=== PATIENT | male | born 1950 | race Caucasian/White ===

== ENCOUNTER → 2023-02-25 | Outpatient (CLI) | payer MEDICARE | END | disposition home or self-care (01) | LOC: LABWHC1 11:31 | PROVIDERS: ATTEND Orthopaedic Surgery Orthopaedic Surgery of the Spine | DX: Z53.9 Procedure and treatment not carried out, unspecified reason (principal) ==

== ENCOUNTER → 2023-03-08 | Outpatient (CLI) | payer MEDICARE ==
[2023-03-08 16:14] LABS: Partial Thromboplastin Time 23.2 sec (22.0-30.0); Prothrombin Time 10.5 sec (10.0-12.5)
[2023-03-09 02:01] LABS: Basophils # (A) 0.09 X 10*3/uL (0.00-0.10); Eosinophils # (A) 0.24 X 10*3/uL (0.04-0.35); Eosinophils % (A) 2.7 %; Lymphocytes # (A) 1.92 X 10*3/uL (0.90-5.00); Lymphocytes % (A) 21.9 %; MCH 28.9 pg (27.0-32.0); MCHC 32.6 d/dL (32.0-37.0); MCV 88.6 FL (80.0-97.0); Mean Platelet Volume 11.7 FL (9.5-12.2); Monocytes # (A) 0.52 X 10*3/uL (0.20-1.00); Monocytes % (A) 5.9 %; NRBC Per 100 WBC 0 X 10*3/uL (0.00-0.01); Neutrophils # (A) 5.96 X 10*3/uL (1.80-7.70); Neutrophils % (A) 68.3 %; Platelet Count 240 X 10*3/uL (140-440); RBC 5.19 X 10*6/uL (4.40-5.60); RDW 12.7 % (11.5-14.5); WBC 8.75 X 10*3/uL (4.50-10.00)
[2023-03-09 02:17] LABS: Blood Urea Nitrogen 21.3 mg/dL (9.0-27.0); Calcium 10.7 mg/dL (8.7-10.3); Carbon Dioxide 28.5 mmol/L (21.6-31.8); Chloride 104 mmol/L (96-109); Glucose 85 mg/dL (70-110); Potassium 4.3 mmol/L (3.5-5.5); Sodium 145 mmol/L (135-145)
[2023-03-09 02:21] LABS: Appearance,Urine Turbid (Clear); Bilirubin,Urine Negative (Negative); Blood,Urine Negative (Negative); Color,Urine Yellow (Yellow); Ketones,Urine Negative (Negative); Nitrite,Urine Negative (Negative); Specific Gravity,Urine 1.026 (1.001-1.030)
[2023-03-09 02:31] LABS: Bacteria,Urine None Seen (None Seen)
== END | disposition home or self-care (01) ==
LOC: LABPAT 14:32
PROVIDERS: ATTEND Orthopaedic Surgery Orthopaedic Surgery of the Spine
DX: Z01.812 Encounter for preprocedural laboratory examination (principal); M48.00 Spinal stenosis, site unspecified
CPT/HCPCS: 80048; 81001; 85025; 85610; 85730; 86850; 86900; 86901; 87070

== ENCOUNTER 2023-03-20 06:47 | Observation (INO) | payer MEDICARE ==
[2023-03-14 13:12] VITALS: BMI 29.4
[~2023-03-20 06:47] MED LIST: DEXAMETHASONE SOD PHOSPHATE 4 MG/ML 1 ML VIAL IV ONE; ONDANSETRON 4 MG/2 ML VIAL IVP ONE; ceFAZolin 1,000 MG in SODIUM CHLORIDE 0.9% IRRIGATIO 1,000 ML IRRIGATION PRN
[2023-03-20] MEDS ORDERED: HYDROmorphone 0.5 MG/0.5 ML SYRINGE IVP PRN ×2 (07:00→13:28)
[2023-03-20] MEDS: LACTATED RINGERS 1,000 ML IV SCH (07:40)
[2023-03-20] MEDS ORDERED: LIDOCAINE 1% (10MG/ML) FOR IV START INTRADERMA ONE (07:40)
[2023-03-20 08:01] LABS: Glucose,Whole Blood 133 mg/dL (70-110)
[2023-03-20] MEDS ORDERED: PROPOFOL 10 MG/ML 20 ML VIAL IV ONE (08:20)
[2023-03-20] MEDS ORDERED: GLYCOPYRROLATE 0.2 MG/ML 2 ML VIAL ONE (08:20)
[2023-03-20] MEDS ORDERED: WATER FOR INJECTION, STERILE 10 ML VIAL IV ONE (08:20)
[2023-03-20] MEDS ORDERED: SUCCINYLCHOLINE CHLORIDE 200 MG/10 ML VIAL IV ONE (08:20)
[2023-03-20] MEDS ORDERED: fentaNYL (PF) 50 MCG/ML 2 ML AMP ONE (08:20)
[2023-03-20] MEDS ORDERED: VASOPRESSIN 20 UNIT/ML 1 ML VIAL ONE (08:20)
[2023-03-20] MEDS ORDERED: ROCURONIUM 10 MG/ML (5 ML VIAL) IV ONE (08:20)
[2023-03-20] MEDS ORDERED: MIDAZOLAM 2 MG/2 ML VIAL ONE (08:20)
[2023-03-20] MEDS ORDERED: NEOSTIGMINE 1 MG/ML 10 ML VIAL ONE (08:20)
[2023-03-20] MEDS ORDERED: ePHEDrine 50 MG/ML 1 ML VIAL ONE (08:20)
[2023-03-20] MEDS ORDERED: LIDOCAINE 1% INJ 10MG/ML (20 ML MDV) ONE (08:20)
[2023-03-20] MEDS ORDERED: ALBUMIN HUMAN 5% (25gm) 500 ML VIAL IVPB ONE (08:20)
[2023-03-20] MEDS ORDERED: PHENYLEPHRINE 10 MG/ML VIAL ONE (08:20)
[2023-03-20] MEDS ORDERED: GELATIN SPONGE,ABSORB (LARGE) 1 EACH SPONGE TOPICAL ONE (08:25)
[2023-03-20] MEDS ORDERED: LIDOCAINE 0.5%-EPI 1:200,000 50 ML VIAL SQ ONE (08:25)
[2023-03-20] MEDS ORDERED: THROMBIN (BOVINE) 5,000 UNIT VIAL TOPICAL ONE (08:25)
[2023-03-20] MEDS ORDERED: LACTATED RINGERS 1,000 ML IV ONE ×3 (09:49→13:11)
[2023-03-20] MEDS ORDERED: HYDROmorphone 1 MG/ML 1 ML SYRINGE IVP PRN (13:28)
[2023-03-20] MEDS ORDERED: BENZOCAINE/MENTHOL LOZENG 1 EACH LOZENGE MUCOUS MEM PRN (13:28)
[2023-03-20] MEDS ORDERED: SENNOSIDES-DOCUSATE SODIUM 1 EACH TAB PO PRN (13:29)
[2023-03-20] MEDS ORDERED: ONDANSETRON 4 MG/2 ML VIAL IVP PRN (13:29)
[2023-03-20] MEDS ORDERED: MAGNESIUM HYDROXIDE 2,400 MG/30 ML CUP PO PRN (13:29)
--- NOTE | 2023-03-20 13:38 | P.OP ---
Date of Procedure: 03/20/23 Preoperative Diagnosis: Spinal stenosis L3 4 L4 5 L5-S1, disc protrusion L3 4 L4 5 L5-S1, facet arthrosis L3 to S1, lower extremity radiculopathy, lower extremity weakness, neurogenic claudication, degenerative disc disease, low back pain Postoperative Diagnosis: Same Anesthesia: GETA Pathology: none sent Condition: stable Disposition: PACU Description of Procedure: DESCRIPTION OF PROCEDURE(S): BRIEF OPERATIVE NOTE Preoperative Diagnosis: Spinal stenosis L3 4 L4 5 L5-S1, disc protrusion L3 4 L4 5 L5-S1, facet arthrosis L3 to S1, lower extremity radiculopathy, lower extremity weakness, neurogenic claudication, degenerative disc disease, low back pain Postoperative Diagnosis: Same same Procedure: Laminectomy and decompression L3 4 L4 5 L5-S1 with wide bilateral foraminotomy beyond that for preparation for fusion Computer CT navigation aided Minimally invasive Posterior lateral decompression and facet fusion L3 4 L4 5 L5-S1 Minimally invasive Transforaminal lumbar interbody fusion for a 360 fusion L3 4 L4 5 L5-S1 Discectomy for decompression L3 4 L4 5 L5-S1 Placement of interbody graft L3 4 L4 5 L5-S1 Use of computer navigation for fusion L3 L4 L5 and S1 Local autogenous bone grafting Aspiration of bone marrow from the vertebral body pedicle from L3 on the right Use of bone graft extenders Surgeon: Dr. Majano Power Hammer Operator: Vitor WILSON who is present throughout the entire the case nicole kennedy during positioning, dissection, exposure, visualization, and all crucial elements of the case as well as closure. Anesthesia: General anesthesia Estimated blood loss: Approximately 450 mL Complications: None apparent Components implanted: K2M minimally invasive [place] pedicle screw system with 8 screws measuring 6.5 mm in diameter to rods 3 Farber interbody cage with 10 mL of osteo amp bio4 bone graft substitute and 30 mL of the BX bone fibers to supplement the local autogenous bone graft and bone marrow aspirate Disposition: To recovery room in good stable condition. OPERATIVE INDICATIONS The patient has had severe issues at their lower extremity in her lower back over the past several years with significant worsening over the past several months. Over the past few months the patient had pain at their back and their lower extremities. The patient has long-term history of issues with his back and has been worsening significantly for him or is becoming more and more limi ting on his activity and any daily mobilization and movement. He is not had any relief despite aggressive conservative care. His symptoms correlate well with his findings of severe lumbar stenosis and degenerative spondylosis of his lumbar spine with lower extremity issues. The patient is having severe radicular symptoms at their lower extremity with weakness. The patient is having significant pain in their back. They are unable to obtain any comfort. We did aggressive conservative treatment with medications therapy and interventional pain management however thery were not having any relief. The patient also showed evidence of a listhesis with some dynamic instability. The patient has been through conservative treatment. We discussed various treatment options including surgery, and the patient wishes to proceed with surgery We discussed the risk, patient's alternatives and benefits of surgery including but not limited to, risk of bleeding risk of infection, risk of need for further surgery, risk of decreased, loss of motion, muscle function, malunion nonunion, hardware failure, nerve damage, paralysis, heart attack, blindness and . They understood issues with the current pandemic and the possibility of exposure. OPERATIVE SUMMARY After discussing all the risks, patient alternatives and benefits at length, the patient elected to proceed with surgical intervention, signed informed consent, and presented for their procedure. The patient was seen and examined in the preoperative holding area and the surgical site was marked. The patient was given antibiotics and brought to the operating room. The patient was sedated and intubated by anesthesia in standard fashion. The patient was positioned on to the operating room table in a prone position on the appropriate frame which was well-padded and well molded. We were careful to pad any bony prominences and pressure points. We were careful to maintain the patient's cervical spine and good neutral alignment and position throughout. The patient was prepped and draped in a normal standard fashion. An appropriate timeout and keystone protocol performed. We were able to proceed with the surgery. The local wound area was infiltrated with local anesthetic. Over the right iliac crest I was able to make small stab incisions and establish a guidepin screw fixation to the iliac crest 2. I was able place the computer referencing device over the guidepins to establish an appropriate reference point for the Ziem CT navigation. We then were able to place patient in an appropriate drape and do a navigation spin for visualization and 3-D reconstruction of the lumbar spine. I was able utilize C-arm guidance and navigation to establish appropriate position over the pedicles bilaterally at the appropriate levels . With the appropriate levels from L3 to S1 confirmed was able to make small incisions over the appropriate pedicle sites bilaterally. Utilizing the computer navigation device I was able to establish bony landmarks at the right iliac crest for a bony reference point for the navigation device. I was able to establish a Jamshidi needle over the lateral aspect of the pedicle and advanced the trocar into the pedicle being careful not to breech superiorly inferiorly medially or laterally using computer navigation device. Position was confirmed regularly with AP and lateral images on C-arm and with the computer navigation device at the appropriate levels bilaterally at L3 L4 L5 and S1. I was able to establish the trocar into the pedicle appropriately into the posterior aspect of the vertebral body bilaterally at the appropriate levels from L3 to S1. This was done at each of the pedicle positions and each of the vertebrae. At the superior vertebrae I was able to take approximately 25 mL of bone aspiration from the pedicle of L3 on the right for use later in the case to supplement the allograft and autograft bone. I was able place the guidewire into the trocar and into the vertebral body appropriately under C-arm guidance. Dissection was taken down over the wire to the appropriate starting position for the screw placed. The appropriate length screw was chosen, threaded over the guidewire and screwed appropriately into the pedicle and vertebral body under C-arm guidance in excellent alignment and position with good bony purchase. This is done at each of the screw sites at the appropriate levels at L3 L4 L5 and S1. With the screws intact I extended the incision to connect the screw hole sites on the most symptomatic side on the left radius having the majority of his radiculopathy. I dissected down to establish access over the pars and lamina to the base of the spinous process. I was able to expose the facet joint. The capsule the facet was taken down and showed some facet arthrosis at the joint. I was able to use a combination of curettes and Kerrison rongeurs and a high- speed drill to take down the facet joint and do a facetectomy. I was able get excellent foraminal decompression and central decompression with undermining across midline to perform a laminectomy centrally and contralaterally. I was able get good central decompression. The ligamentum flavum was taken down to further decompress centrally and at bilateral neural foramen. I was able to expose the disc space and visualize the traversing nerve root. Note was made of some disc protrusion and disc herniation that was abutting the traversing nerve root at the level causing further compression of the nerve root. I was able to establish a annulotomy at the appropriate level protecting soft tissue and neural structures. This was done at levels L3 4 L4 5 and L5-S1. At L4 5 there didn't seem to be evidence of a facet cyst which was removed for further decompression as well. Note was made of some severe disc desiccation at the disc. I performed a complete discectomy with accommodation of curettes and rasps and scrapers. The discectomy provided further decompression beyond that for preparation for fusion. I was able get good endplate preparation at the disc space. I sized for the appropriate size interbody spacer protecting the soft tissue and neural structures. The wound was copiously irrigated and suctioned dry. There is no evidence of any dural tear or leak. I was able to pack the disc space with local autogenous bone graft as well as a small amount of bone graft which was also placed into the interbody cage itself. Protecting the soft tissue structures and neural structures I was able place the interbody cage in good alignment and good position with good fit and fill at the interbody space. Position was confirmed with C-arm guidance. Good hemostasis maintained. There is no evidence of any dural tear or leak. The wound was irrigated and suctioned dry. With the hardware intact, intraoperative C-arm imaging was again taken which showed good alignment and position of the hardware at the appropriate levels. We were then able to measure, contour and place the rods and appropriate hardware bilaterally at L3 L4 L5 and S1. I was able to place capcrews, tighten them down, and torque them with the torque screwdriver appropriately. With this intact I was able to place the local autogenous bone graft with additional bone graft enhancer as necessary into the posterior lateral gutters over the decorticated transverse processes and facet joints on the contralateral side. The remainder of the bone graft was placed over the facet joint on the contralateral side after taking down the facet joint capsule. With the bone graft intact, a stable construct, and good decompression at the appropriate levels, we were able to proceed with closure. Good hemostasis was maintained. There is no evidence of dural tear or leak. The fascia was closed for a watertight closure. he subcuticular tissue was closed with absorbable suture. The wound was cleaned and dried and dressed with the appropriate dressing. The drapes were broken down. The patient was gently rolled back onto their hospital bed being careful to maintain their cervical spine and good neutral alignment and position. They were woken up by anesthesia, extubated, and brought to the recovery room in good stable condition. The patient will be admitted to the hospital for appropriate postoperative care, medical management and monitoring. We will continue to follow them closely about the postoperative course.
[2023-03-20 13:51] LABS: Glucose,Whole Blood 179 mg/dL (70-110)
[2023-03-20] MEDS ORDERED: DEXTROSE 50% SYRINGE 50 ML IVP PRN ×2 (14:58)
[2023-03-20] MEDS: SODIUM CHLORIDE 0.9% 1,000 ML IV SCH (15:57)
--- NOTE | 2023-03-20 15:59 | XR ---
Fluoroscopy INDICATION: Minimally invasive lumbar surgery FINDINGS: Fluoroscopy time: 21 seconds. Total dose area product (DAP) in uGy*m?, mGy*cm? (or similar): Images obtained: 0. IMPRESSION: 1. Documentation of fluoroscopy.
[2023-03-20 17:00] LABS: Glucose,Whole Blood 146 mg/dL (70-110)
[2023-03-20] MEDS: INSULIN ASPART (NovoLOG) 100 UNIT/ML VIAL SQ SCH ×2 (17:06→20:04)
[2023-03-20] MEDS: CYCLOBENZAPRINE 10 MG TAB PO PRN (17:15)
[2023-03-20] MEDS: HYDROcodone/APAP 5-325MG 1 EACH TAB PO PRN ×2 (17:15→22:18)
[2023-03-20 20:01] LABS: Glucose,Whole Blood 158 mg/dL (70-110)
[2023-03-20] MEDS: NITROFURANTOIN MONOHYD/M-CRYST 100 MG CAP PO SCH (20:09)
[2023-03-20] MEDS: GABAPENTIN 300 MG CAP PO SCH (20:09)
[2023-03-20] MEDS: metFORMIN 500 MG TAB PO SCH (20:09)
[2023-03-20] MEDS: glipiZIDE 10 MG TAB PO SCH (20:09)
[2023-03-20] MEDS: ATORVASTATIN 20 MG TAB PO SCH (20:09)
[2023-03-21] MEDS: CYCLOBENZAPRINE 10 MG TAB PO PRN ×3 (03:34→16:43)
[2023-03-21] MEDS: HYDROcodone/APAP 5-325MG 1 EACH TAB PO PRN ×5 (03:34→21:36)
[2023-03-21] MEDS: SODIUM CHLORIDE 0.9% 1,000 ML IV SCH ×2 (05:26→16:42)
[2023-03-21] MEDS: LACTATED RINGERS 1,000 ML IV SCH (05:43)
[2023-03-21 06:16] LABS: Glucose,Whole Blood 207 mg/dL (70-110)
[2023-03-21] MEDS: INSULIN ASPART (NovoLOG) 100 UNIT/ML VIAL SQ SCH ×4 (06:40→21:36)
[2023-03-21] MEDS: GABAPENTIN 300 MG CAP PO SCH ×2 (07:59→21:35)
[2023-03-21] MEDS: glipiZIDE 10 MG TAB PO SCH ×2 (08:07→21:35)
[2023-03-21] MEDS: CHOLECALCIFEROL 25 MCG (1000 IU) TABLET PO SCH (08:07)
[2023-03-21] MEDS: hydroCHLOROthiazide 25 MG TAB PO SCH (08:07)
[2023-03-21] MEDS: TAMSULOSIN 0.4 MG CAP.ER.24H PO SCH (08:07)
[2023-03-21] MEDS: METOPROLOL SUCCINATE (ER) 50 MG TAB.ER.24H PO SCH (08:08)
[2023-03-21] MEDS: PANTOPRAZOLE 40 MG TABLET PO SCH (08:08)
[2023-03-21] MEDS: MAGNESIUM OXIDE 400 MG TAB PO SCH (08:09)
[2023-03-21] MEDS: MULTIVITAMINS, THERA 1 EACH TAB PO SCH (08:09)
[2023-03-21] MEDS: SERTRALINE 50 MG TAB PO SCH (08:09)
[2023-03-21] MEDS: THIAMINE 100 MG TAB PO SCH (08:09)
[2023-03-21] MEDS: metFORMIN 500 MG TAB PO SCH ×2 (08:10→21:35)
[2023-03-21] MEDS: NITROFURANTOIN MONOHYD/M-CRYST 100 MG CAP PO SCH ×2 (08:16→22:44)
[2023-03-21] MEDS: ASPIRIN 81 MG PO SCH (08:23)
[2023-03-21] MEDS: POTASSIUM CHLORIDE ER 20 MEQ TAB.ER PO SCH (08:23)
[2023-03-21 08:24] LABS: Basophils # (A) 0.03 X 10*3/uL (0.00-0.10); Basophils % (A) 0.2 %; Eosinophils # (A) 0 X 10*3/uL (0.04-0.35); Eosinophils % (A) 0 %; HCT 35.9 % (39.6-50.0); HGB 12.2 g/dL (13.0-17.0); Lymphocytes # (A) 1.05 X 10*3/uL (0.90-5.00); Lymphocytes % (A) 7.7 %; MCV 88.4 FL (80.0-97.0); Mean Platelet Volume 11.8 FL (9.5-12.2); Monocytes # (A) 1.22 X 10*3/uL (0.20-1.00); NRBC Per 100 WBC 0 X 10*3/uL (0.00-0.01); Neutrophils # (A) 11.22 X 10*3/uL (1.80-7.70); Neutrophils % (A) 82.7 %; Platelet Count 142 X 10*3/uL (140-440); RBC 4.06 X 10*6/uL (4.40-5.60); RDW 12.7 % (11.5-14.5); WBC 13.58 X 10*3/uL (4.50-10.00)
[2023-03-21] MEDS: lisinopriL 20 MG TAB PO SCH (08:29)
[2023-03-21 08:57] LABS: BUN/Creat Ratio 16.91 Ratio (12.00-20.00); Blood Urea Nitrogen 18.6 mg/dL (9.0-27.0); Calcium 9.2 mg/dL (8.7-10.3); Carbon Dioxide 24.2 mmol/L (21.6-31.8); Chloride 101 mmol/L (96-109); Glucose 211 mg/dL (70-110); Potassium 3.7 mmol/L (3.5-5.5); Sodium 140 mmol/L (135-145)
[2023-03-21] MEDS ORDERED: SENNOSIDES-DOCUSATE SODIUM 1 EACH TAB PO SCH (09:00)
--- NOTE | 2023-03-21 10:56 | P.PN ---
Progress Note - Text Progress Note Date: 03/21/23 Postoperative day #1 Patient is seen and examined today at bedside. The patient has some pain around the surgical site as expected. Pain is being controlled with medication. He is seated up in a chair. He was able to that with 2% cyst. He does have his Jin catheter removed. He says his legs are doing well. His pain is controlled with IV and oral medicines. He denies nausea vomiting. He says he was able to tolerate this breakfast. Physical Exam Afebrile with stable vital signs Abdomen is soft nontender. Chest has good excursion deep and space expiration The incision site is clean dry and intact. No erythema there is no purulence. The dressing is intact and clean. His back is clear. Extremities have not had neurologic change from prior to surgery. He has sustained dorsiflexion plantarflexion and EHL intact Calves and thighs were soft nontender without evidence of DVT. Assessment/Plan Postoperative day #1 status post minimally invasive decompression fusion L2 through L3 4 L4 5 for severe spinal stenosis with lower extremity radiculopathy weakness and neurogenic claudication Patient is progressing as expected from the surgery. He has soreness at his back which is understandable with his surgery but he feels his legs are doing well. He is already start to mobilize him and hopefully he will be able to increase his mobility. Hopefully he'll be able to void freely on his own. If he is unable to later this afternoon he may need to have his Jin replaced overnight We will have case management see him the possibility of placement as well We will continue to increase the patient's mobilization with therapy. We will continue pain control with oral or IV medications. We'll continue to follow patient closely.
[2023-03-21 11:10] LABS: Glucose,Whole Blood 144 mg/dL (70-110)
--- NOTE | 2023-03-21 12:06 | P.CONS ---
History of Present Illness - Reason for Consult Consult date: 03/21/23 Postoperative management - Chief Complaint Status post lumbar spine surgery for neurogenic claudication - History of Present Illness * 72-year-old gentleman with past medical history significant for diabetes mellitus, hyperlipidemia, hypertension, degenerative disease of spine, chronic back pain, bladder outlet flow obstruction was admitted for an elective lumbar spine surgery * Patient is seen postoperative day one status poor laminectomy and decompression L3 to S1 and fusion * Postprocedure review of vital showed WBC of 13.5 hemoglobin of 12 platelet count of 142 * Serum chemistry sodium 140 potassium 3.7 carbon dioxide 24 BU and 18 creatinine 1.1 HbA1c 7.2 * During the encounter patient did complain of back discomfort REVIEW OF SYSTEMS: Back pain CONSTITUTIONAL: No fever, no malaise, no fatigue. HEENT: No recent visual problems or hearing problems. Denied any sore throat. CARDIOVASCULAR: No chest pain, orthopnea, PND, no palpitations, no syncope. PULMONARY: No shortness of breath, no cough, no hemoptysis. GASTROINTESTINAL: No diarrhea, no nausea, no vomiting, no abdominal pain. NEUROLOGICAL: No headaches, no weakness, no numbness. HEMATOLOGICAL: Denies any bleeding or petechiae. GENITOURINARY: Denies any burning micturition, frequency, or urgency. MUSCULOSKELETAL/RHEUMATOLOGICAL: Denies any joint pain, swelling, or any muscle pain. ENDOCRINE: Denies any polyuria or polydipsia. The rest of the 14-point review of systems is negative. PHYSICAL EXAMINATION: GENERAL: The patient is alert and oriented x3, not in any acute distress. Well developed, well nourished. HEENT: Pupils are round and equally reacting to light. EOMI. CARDIOVASCULAR: S1 and S2 present. No murmurs, rubs, or gallops. PULMONARY: Chest is clear to auscultation, no wheezing or crackles. ABDOMEN: Soft, nontender, nondistended, normoactive bowel sounds. No palpable organomegaly. MUSCULOSKELETAL: No joint swelling or deformity. EXTREMITIES: No cyanosis, clubbing, or pedal edema. NEUROLOGICAL: Gross neurological examination did not reveal any focal deficits. SKIN: Surgical incision bandage Past Medical History Past Medical History: Cancer, Diabetes Mellitus, GERD/Reflux, Hearing Disorder / Deafness, Hyperlipidemia, Hypertension, Neurologic Disorder, Pneumonia, Sleep Apnea/CPAP/BIPAP Additional Past Medical History / Comment(s): Heart murmur. Hx Pneumonia X2. Prostate cancer, diagnosed 4-5 yrs ago, "I only take pills"(Tamsulosin). "Touch of Parkinson's. No CPAP use. Hard of hearing, has hearing aids but does not wear them. History of Any Multi-Drug Resistant Organisms: None Reported Additional Past Surgical History / Comment(s): Colonoscopy, cataract surgery, lumbar decompression/fusion Past Anesthesia/Blood Transfusion Reactions: No Reported Reaction Additional Past Anesthesia/Blood Transfusion Reaction / Comm: "Mom slow to wake up, but she was in her 80's". Past Psychological History: Depression Smoking Status: Former smoker Past Alcohol Use History: None Reported Additional Past Alcohol Use History / Comment(s): Quit smoking 35 yrs ago. Past Drug Use History: None Reported - Past Family History Mother Family Medical History: Cancer, Deep Vein Thrombosis (DVT) Father Family Medical History: Deep Vein Thrombosis (DVT) Medications and Allergies Home Medications Medication Instructions Recorded Confirmed Type Aspirin [Adult Low Dose Aspirin EC] 81 mg PO DAILY 03/14/23 03/14/23 History Cholecalciferol [Vitamin D3 (25 50 mcg PO DAILY 03/14/23 03/14/23 History Mcg = 1000 Iu)] Gabapentin 300 mg PO BID 03/14/23 03/14/23 History Magnesium (Unknown Dose) 1 dose PO DAILY 03/14/23 03/14/23 History Metoprolol Succinate [Toprol XL] 50 mg PO QAM 03/14/23 03/14/23 History Multivitamins, Thera [Multivitamin 1 tab PO DAILY 03/14/23 03/14/23 History (formulary)] Omeprazole 20 mg PO QAM 03/14/23 03/14/23 History Potassium Chloride [K-Tab ER] 20 meq PO DAILY 03/14/23 03/14/23 History Sertraline [Zoloft] 50 mg PO QAM 03/14/23 03/14/23 History Simvastatin 40 mg PO HS 03/14/23 03/14/23 History Tamsulosin [Flomax] 0.8 mg PO DAILY 03/14/23 03/14/23 History Thiamine [Vitamin B-1] 50 mg PO DAILY 03/14/23 03/14/23 History glipiZIDE 20 mg PO BID 03/14/23 03/14/23 History hydroCHLOROthiazide 25 mg PO QAM 03/14/23 03/14/23 History lisinopriL [Prinivil] 20 mg PO QAM 03/14/23 03/14/23 History metFORMIN HCL 1,000 mg PO BID 03/14/23 03/14/23 History nitrofurantoin macrocrystaL 100 mg PO BID 03/14/23 03/14/23 History [Nitrofurantoin] Allergies Allergy/AdvReac Type Severity Reaction Status Date / Time No Known Allergies Allergy Verified 03/14/23 12:09 Physical Exam Vitals: Vital Signs Temp Pulse Resp BP BP Pulse Ox 03/21/23 08:04 96 03/21/23 07:13 97.5 F L 73 19 138/67 96 03/21/23 01:13 97.5 F L 77 18 132/67 95 03/20/23 19:08 98.3 F 70 19 126/65 95 03/20/23 17:13 97.8 F 67 18 112/49 94 L 03/20/23 16:08 98.2 F 67 19 128/67 95 03/20/23 15:53 93 L 03/20/23 15:00 65 16 118/54 96 03/20/23 14:45 68 16 129/58 95 03/20/23 14:30 65 16 124/55 95 03/20/23 14:15 66 16 157/67 98 03/20/23 14:00 68 16 151/67 98 03/20/23 13:45 67 16 144/61 100 03/20/23 13:34 97.9 F 68 18 118/52 100 Intake and Output 03/20/23 03/21/23 03/21/23 22:59 06:59 14:59 Intake Total 650 Output Total 1300 Balance 650 -1300 Intake: Intake, IV Titration 650 Amount Sodium Chloride 0.9% 1, 600 000 ml @ 75 mls/hr IV . [id number] [facility] Rx#:[id number] ceFAZolin 2 gm In Sodium 50 Chloride 0.9% 50 ml @ 100 mls/hr IVPB Q8HR [facility] Rx# :[id number] Output: Urine 1300 Other: Voiding Method Indwelling Catheter Weight 89.1 kg Results CBC & Chem 7: 03/21/23 05:27 03/21/23 05:27 Labs: Abnormal Lab Results - Last 24 Hours (Table) 03/20/23 03/20/23 03/20/23 Range/Units 13:49 16:59 20:00 WBC (4.50-10.00) X 10*3/uL RBC (4.40-5.60) X 10*6/uL Hgb (13.0-17.0) g/dL Hct (39.6-50.0) % Neutrophils # (1.80-7.70) X 10*3/uL Monocytes # (0.20-1.00) X 10*3/uL Eosinophils # (0.04-0.35) X 10*3/uL Anion Gap (4.00-12.00) mmol/L Glucose (70-110) mg/dL POC Glucose (mg/dL) 179 H 146 H 158 H (70-110) mg/dL Hemoglobin A1c (<=6.0) % 03/21/23 03/21/23 03/21/23 Range/Units 05:27 05:27 05:27 WBC 13.58 H (4.50-10.00) X 10*3/uL RBC 4.06 L (4.40-5.60) X 10*6/uL Hgb 12.2 L (13.0-17.0) g/dL Hct 35.9 L (39.6-50.0) % Neutrophils # 11.22 H (1.80-7.70) X 10*3/uL Monocytes # 1.22 H (0.20-1.00) X 10*3/uL Eosinophils # 0 L (0.04-0.35) X 10*3/uL Anion Gap 14.80 H (4.00-12.00) mmol/L Glucose 211 H (70-110) mg/dL POC Glucose (mg/dL) (70-110) mg/dL Hemoglobin A1c 7.2 H (<=6.0) % 03/21/23 Range/Units 06:14 WBC (4.50-10.00) X 10*3/uL RBC (4.40-5.60) X 10*6/uL Hgb (13.0-17.0) g/dL Hct (39.6-50.0) % Neutrophils # (1.80-7.70) X 10*3/uL Monocytes # (0.20-1.00) X 10*3/uL Eosinophils # (0.04-0.35) X 10*3/uL Anion Gap (4.00-12.00) mmol/L Glucose (70-110) mg/dL POC Glucose (mg/dL) 207 H (70-110) mg/dL Hemoglobin A1c (<=6.0) % Assessment and Plan Assessment: Assessment and plan Status post lumbar spine surgery for neurogenic claudication and back pain POD 1 Diabetes mellitus type 2 Hypertension Hyperlipidemia Reactive leukocytosis * In regards to status post spine surgery, continue postoperative management per primary team. Continue with pain control, will need physical therapy evaluation * In regards to diabetes mellitus Accu-Cheks before meals at bedtime, continue patient on correctional insulin, continue metformin and glipizide monitor for hypoglycemia * In regards to hypertension continue lisinopril, hydrochlorothiazide continue with pain control * In regards to postoperative leukocytosis, likely reactive will continue to monitor * Code status is full code
[2023-03-21 16:48] LABS: Glucose,Whole Blood 197 mg/dL (70-110)
[2023-03-21 21:26] LABS: Glucose,Whole Blood 242 mg/dL (70-110)
[2023-03-21] MEDS: ATORVASTATIN 20 MG TAB PO SCH (21:35)
[2023-03-22 06:27] LABS: Glucose,Whole Blood 185 mg/dL (70-110)
[2023-03-22] MEDS: LACTATED RINGERS 1,000 ML IV SCH (06:28)
[2023-03-22] MEDS: PANTOPRAZOLE 40 MG TABLET PO SCH (06:31)
[2023-03-22] MEDS: INSULIN ASPART (NovoLOG) 100 UNIT/ML VIAL SQ SCH ×4 (06:31→20:23)
[2023-03-22] MEDS: SODIUM CHLORIDE 0.9% 1,000 ML IV SCH ×2 (06:35→20:26)
[2023-03-22] MEDS ORDERED: SENNOSIDES-DOCUSATE SODIUM 1 EACH TAB PO PRN (08:45)
--- NOTE | 2023-03-22 08:51 | P.PN ---
Progress Note - Text Progress Note Date: 03/22/23 Orthopedic Spine History of present illness: Patient is a pleasant 72-year-old male who is seen and examined at the bedside following posterior lateral decompression and fusion performed Saturday. Patient states they are doing well post operatively. His lower extremity leg pain has significantly improved postoperatively. He is no longer experiencing severe pain down the lower extremities like he was. He does continue to have some generalized weakness with his lower extremities and difficulty with ambulation. He has been working with physical therapy. He is utilizing a walker. His pain is most significant at the surgical sites of the lumbar spine. His pain is being controlled with oral and IV medications. Currently does not complain of nausea, vomiting, fever, or chills. Patient states pain has been adequately controlled. Patient is eating and voiding freely without difficulty. He has not had a bowel movement but is passing gas. He does have some difficulty with constipation prior to surgical intervention. He has been seen by case management. He does not feel safe enough to be discharged home. We'll plan for discharge to a rehabilitation facility at the time of discharge. Patient is being seen and examined by medicine for his other medical diagnoses including diabetes mellitus, hyperlipidemia, and hypertension. Physical Exam Lumbar Fusion: Status post surgical day number 2 Patient is awake, alert, and oriented 3 Vital signs stable; patient sitting in a bedside chair Good chest excursion with deep inspiration and expiration Abdomen soft nontender Dorsiflexion, plantarflexion, and extensor hallucis longus positive sustained bilaterally Patient is able to perform knee extension bilaterally independently without difficulty No signs or symptoms of DVT; no calf pain; pneumatic cuffs not currently intact bilateral lower extremities Optifoam dressings are clean, dry, and intact over the lumbar spine and right iliac crest; no erythema, purulence, or signs of infection Neurovascularly intact bilaterally lower extremities Assessment: Status post L3-4, L4-5, and L5-S1 minimally invasive posterior lateral decompression and fusion with transforaminal lumbar interbody fusion Low back pain Neurogenic claudication Lower extremity weakness Lumbar degenerative disc disease L3-4, L4-5, and L5-S1 lumbar spinal stenosis L3-S1 lumbar facet arthrosis L3-S1 disc protrusion Diabetes mellitus Hypertension Hyperlipidemia Plan: 1. Ambulate as tolerated; work with Physical Therapy to increase mobilization; he is encouraged to continue utilizing a walker to aid in ambulation 2. Continue pain control with IV and oral medications; will plan to begin weaning the patient off of IV narcotic medication in anticipation for discharge to a rehabilitation facility as early as tomorrow, 03/23/2023, or this coming 03/25/2023 [facility] has been reviewed. An "Opiod Start Talking" Form has been signed and placed in the patient's chart. A prescription has been written for hydrocodone 5 mg/325 mg, 1 tab, every 4 hours as needed for acute pain, dispense #42. He is also given prescription for baclofen 10 mg, 1 tab, 3 times a day, as needed for muscle spasm, dispensed #60, Senokot-S1 tab twice a day as needed for constipation, and gabapentin, 300 mg, twice a day, dispensed #6. These prescriptions are printed, signed, and placed in the patient's chart in anticipation for discharge to a rehabilitation facility. 3. Dressings to remain intact with Optifoam; patient may shower with dressings intact 4. Patient does have some known difficulty with constipation prior to surgical intervention. He is on Senokot-S twice a day and milk of magnesia. We will also plan to add MiraLAX. He is passing gas and denies abdominal pain. 5. Medical management can continue to manage patient for patient's other medical diagnoses 6. We will continue to follow the patient closely; depending on the patient's progress, we may plan for discharge to a rehabilitation facility as early as tomorrow, 03/23/2023, if the patient continues to have some improvement, he is cleared by medicine, and patient is approved through his insurance for discharge to a rehabilitation facility. 7. Patient can follow-up with Vitor De Jesus PA-C or Dr. Shan Majano at [facility] in 2-3 weeks following discharge
[2023-03-22] MEDS: NITROFURANTOIN MONOHYD/M-CRYST 100 MG CAP PO SCH ×2 (09:37→20:24)
[2023-03-22] MEDS: ASPIRIN 81 MG PO SCH (09:37)
[2023-03-22] MEDS: THIAMINE 100 MG TAB PO SCH (09:38)
[2023-03-22] MEDS: POTASSIUM CHLORIDE ER 20 MEQ TAB.ER PO SCH (09:38)
[2023-03-22] MEDS: METOPROLOL SUCCINATE (ER) 50 MG TAB.ER.24H PO SCH (09:38)
[2023-03-22] MEDS: MULTIVITAMINS, THERA 1 EACH TAB PO SCH (09:38)
[2023-03-22] MEDS: lisinopriL 20 MG TAB PO SCH (09:38)
[2023-03-22] MEDS: glipiZIDE 10 MG TAB PO SCH ×2 (09:38→20:24)
[2023-03-22] MEDS: GABAPENTIN 300 MG CAP PO SCH ×2 (09:38→20:24)
[2023-03-22] MEDS: hydroCHLOROthiazide 25 MG TAB PO SCH (09:38)
[2023-03-22] MEDS: CHOLECALCIFEROL 25 MCG (1000 IU) TABLET PO SCH (09:38)
[2023-03-22] MEDS: MAGNESIUM OXIDE 400 MG TAB PO SCH (09:39)
[2023-03-22] MEDS: TAMSULOSIN 0.4 MG CAP.ER.24H PO SCH (09:39)
[2023-03-22] MEDS: SERTRALINE 50 MG TAB PO SCH (09:39)
[2023-03-22] MEDS: metFORMIN 500 MG TAB PO SCH ×2 (09:39→20:23)
--- NOTE | 2023-03-22 10:57 | P.PN ---
Subjective Progress Note Date: 03/22/23 * 72-year-old gentleman with past medical history significant for diabetes mellitus, hyperlipidemia, hypertension, degenerative disease of spine, chronic back pain, bladder outlet flow obstruction was admitted for an elective lumbar spine surgery * Patient is seen postoperative day one status poor laminectomy and decompression L3 to S1 and fusion * Postprocedure review of vital showed WBC of 13.5 hemoglobin of 12 platelet count of 142 * Serum chemistry sodium 140 potassium 3.7 carbon dioxide 24 BU and 18 creatinine 1.1 HbA1c 7.2 * During the encounter patient did complain of back discomfort * 03/22: Patient seen and evaluated bedside, patient is alert to person and situation. Lethargic however easily arousable. Vitals reviewed, continue on oxygen through nasal cannula encourage use of incentive spirometer back pain is better controlled blood work from this morning pending Objective - Vital Signs Vital signs: Vital Signs Temp 99.7 F H 03/22/23 06:59 Pulse 75 03/22/23 06:59 Resp 17 03/22/23 06:59 BP 122/72 03/22/23 06:59 Pulse Ox 97 03/22/23 06:59 FiO2 Intake & Output 03/21/23 03/22/23 03/22/23 18:59 06:59 18:59 Intake Total 1300 Output Total 500 Balance 800 Intake: Intake, IV Titration 1300 Amount Sodium Chloride 0.9% 1, 1200 000 ml @ 75 mls/hr IV . [id number] KINJAL Rx#:[id number] ceFAZolin 2 gm In Sodium 100 Chloride 0.9% 50 ml @ 100 mls/hr IVPB Q8HR KINJAL Rx# :[id number] Output: Urine 500 Uretheral (Jin) 500 Other: Voiding Method Bedside Commode # Voids 3 - Exam PHYSICAL EXAMINATION: GENERAL: The patient is alert and oriented x3, not in any acute distress. Well developed, well nourished. Nasal cannula in place HEENT: Pupils are round and equally reacting to light. EOMI. CARDIOVASCULAR: S1 and S2 present. No murmurs, rubs, or gallops. PULMONARY: Chest is clear to auscultation, no wheezing or crackles. ABDOMEN: Soft, nontender, nondistended, normoactive bowel sounds. No palpable organomegaly. MUSCULOSKELETAL: No joint swelling or deformity. EXTREMITIES: No cyanosis, clubbing, or pedal edema. NEUROLOGICAL: Gross neurological examination did not reveal any focal deficits. SKIN: Surgical incision bandage - Labs CBC & Chem 7: 03/21/23 05:27 03/21/23 05:27 Labs: Abnormal Lab Results - Last 24 Hours (Table) 03/21/23 03/21/23 03/21/23 Range/Units 11:08 16:47 21:25 POC Glucose (mg/dL) 144 H 197 H 242 H (70-110) mg/dL 03/22/23 Range/Units 06:26 POC Glucose (mg/dL) 185 H (70-110) mg/dL Assessment and Plan Assessment: Assessment and plan Status post lumbar spine surgery for neurogenic claudication and back pain POD 2 Diabetes mellitus type 2 Hypertension Hyperlipidemia Reactive leukocytosis * In regards to status post spine surgery, continue postoperative management per primary team. Continue with pain control, will need physical therapy evaluation * In regards to diabetes mellitus Accu-Cheks before meals at bedtime, continue patient on correctional insulin, continue metformin and glipizide monitor for hypoglycemia * In regards to hypertension continue lisinopril, hydrochlorothiazide continue with pain control * In regards to postoperative leukocytosis, likely reactive will continue to monitor * Continue to monitor for resumption of bowel and bladder function * Will need to be discharged to rehab facility * Code status is full code Time with Patient: Greater than 30
[2023-03-22 11:01] LABS: HGB 10.6 g/dL (13.0-17.0); MCH 29.5 pg (27.0-32.0); MCHC 33.1 g/dL (32.0-37.0); MCV 89.1 FL (80.0-97.0); Mean Platelet Volume 11.5 FL (9.5-12.2); NRBC Per 100 WBC 0 X 10*3/uL (0.00-0.01); Platelet Count 126 X 10*3/uL (140-440); RBC 3.59 X 10*6/uL (4.40-5.60); RDW 12.7 % (11.5-14.5)
[2023-03-22 11:18] LABS: BUN/Creat Ratio 19.27 Ratio (12.00-20.00); Blood Urea Nitrogen 21.2 mg/dL (9.0-27.0); Calcium 9.3 mg/dL (8.7-10.3); Carbon Dioxide 23.1 mmol/L (21.6-31.8); Chloride 102 mmol/L (96-109); Glucose 180 mg/dL (70-110); Potassium 4.2 mmol/L (3.5-5.5); Sodium 137 mmol/L (135-145)
[2023-03-22 11:34] LABS: Glucose,Whole Blood 181 mg/dL (70-110)
[2023-03-22] MEDS: polyethylene glycoL 3350 17 GM POWD.PACK PO SCH (12:29)
[2023-03-22 16:43] LABS: Glucose,Whole Blood 185 mg/dL (70-110)
[2023-03-22 19:14] LABS: Glucose,Whole Blood 169 mg/dL (70-110)
[2023-03-22] MEDS: ATORVASTATIN 20 MG TAB PO SCH (20:24)
[2023-03-22] MEDS: HYDROcodone/APAP 5-325MG 1 EACH TAB PO PRN (20:24)
[2023-03-23 05:20] LABS: Glucose,Whole Blood 84 mg/dL (70-110)
[2023-03-23] MEDS: INSULIN ASPART (NovoLOG) 100 UNIT/ML VIAL SQ SCH ×4 (05:44→20:44)
[2023-03-23] MEDS: LACTATED RINGERS 1,000 ML IV SCH (05:44)
[2023-03-23] MEDS: MAGNESIUM OXIDE 400 MG TAB PO SCH (07:44)
[2023-03-23] MEDS: polyethylene glycoL 3350 17 GM POWD.PACK PO SCH (07:44)
[2023-03-23] MEDS: CHOLECALCIFEROL 25 MCG (1000 IU) TABLET PO SCH (07:44)
[2023-03-23] MEDS: TAMSULOSIN 0.4 MG CAP.ER.24H PO SCH (07:44)
[2023-03-23] MEDS: PANTOPRAZOLE 40 MG TABLET PO SCH (07:44)
[2023-03-23] MEDS: ASPIRIN 81 MG PO SCH (07:44)
[2023-03-23] MEDS: metFORMIN 500 MG TAB PO SCH ×2 (07:44→20:49)
[2023-03-23] MEDS: MULTIVITAMINS, THERA 1 EACH TAB PO SCH (07:45)
[2023-03-23] MEDS: THIAMINE 100 MG TAB PO SCH (07:45)
[2023-03-23] MEDS: POTASSIUM CHLORIDE ER 20 MEQ TAB.ER PO SCH (07:45)
[2023-03-23] MEDS: lisinopriL 20 MG TAB PO SCH (07:45)
[2023-03-23] MEDS: GABAPENTIN 300 MG CAP PO SCH ×2 (07:45→20:49)
[2023-03-23] MEDS: NITROFURANTOIN MONOHYD/M-CRYST 100 MG CAP PO SCH ×2 (07:45→20:49)
[2023-03-23] MEDS: glipiZIDE 10 MG TAB PO SCH ×2 (07:46→20:49)
[2023-03-23] MEDS: SERTRALINE 50 MG TAB PO SCH (07:46)
[2023-03-23] MEDS: METOPROLOL SUCCINATE (ER) 50 MG TAB.ER.24H PO SCH (07:46)
[2023-03-23 09:10] LABS: HCT 27.2 % (39.6-50.0); MCH 29.3 pg (27.0-32.0); MCHC 33.1 g/dL (32.0-37.0); MCV 88.6 FL (80.0-97.0); Mean Platelet Volume 11.8 FL (9.5-12.2); NRBC Per 100 WBC 0 X 10*3/uL (0.00-0.01); Platelet Count 105 X 10*3/uL (140-440); RBC 3.07 X 10*6/uL (4.40-5.60); RDW 12.7 % (11.5-14.5); WBC 11.12 X 10*3/uL (4.50-10.00)
[2023-03-23 10:35] LABS: BUN/Creat Ratio 26.44 Ratio (12.00-20.00); Blood Urea Nitrogen 23.8 mg/dL (9.0-27.0); Carbon Dioxide 26.1 mmol/L (21.6-31.8); Chloride 101 mmol/L (96-109); Glucose 77 mg/dL (70-110); Potassium 3.6 mmol/L (3.5-5.5); Sodium 137 mmol/L (135-145)
[2023-03-23] MEDS: SODIUM CHLORIDE 0.9% 1,000 ML IV SCH ×2 (11:08→20:50)
[2023-03-23] MEDS: hydroCHLOROthiazide 25 MG TAB PO SCH (11:09)
[2023-03-23 11:39] LABS: Glucose,Whole Blood 99 mg/dL (70-110)
[2023-03-23] MEDS ORDERED: HYDROcodone/APAP 7.5-325MG 1 EACH TAB PO PRN ×2 (12:49)
--- NOTE | 2023-03-23 13:06 | P.PN ---
Subjective Progress Note Date: 03/23/23 * 72-year-old gentleman with past medical history significant for diabetes mellitus, hyperlipidemia, hypertension, degenerative disease of spine, chronic back pain, bladder outlet flow obstruction was admitted for an elective lumbar spine surgery * Patient is seen postoperative day one status poor laminectomy and decompression L3 to S1 and fusion * Postprocedure review of vital showed WBC of 13.5 hemoglobin of 12 platelet count of 142 * Serum chemistry sodium 140 potassium 3.7 carbon dioxide 24 BU and 18 creatinine 1.1 HbA1c 7.2 * During the encounter patient did complain of back discomfort * 03/22: Patient seen and evaluated bedside, patient is alert to person and situation. Lethargic however easily arousable. Vitals reviewed, continue on oxygen through nasal cannula encourage use of incentive spirometer back pain is better controlled blood work from this morning pending * 03/23: Patient seen and evaluated bedside, patient states abdominal distention has improved able to urinate as well. Vitals reviewed. Blood work reviewed WBC 11/hemoglobin 9 serum chemistry sodium 137 potassium 3.6 renal function within normal limits blood glucose low ranging 84/99, patient on glipizide, metformin, correctional insulin encouraged increase oral intake Objective - Vital Signs Vital signs: Vital Signs Temp 98.4 F 03/23/23 07:30 Pulse 87 03/23/23 07:30 Resp 19 03/23/23 07:30 BP 112/64 03/23/23 07:30 Pulse Ox 94 L 03/23/23 07:30 FiO2 Intake & Output 03/22/23 03/23/23 03/23/23 18:59 06:59 18:59 Output Total 200 Balance -200 Output: Urine 200 Other: # Voids 7 3 1 # Bowel Movements 1 - Exam PHYSICAL EXAMINATION: GENERAL: The patient is alert and oriented x3, not in any acute distress. Well developed, well nourished. Nasal cannula in place HEENT: Pupils are round and equally reacting to light. EOMI. CARDIOVASCULAR: S1 and S2 present. No murmurs, rubs, or gallops. PULMONARY: Chest is clear to auscultation, no wheezing or crackles. ABDOMEN: Soft, nontender, nondistended, normoactive bowel sounds. No palpable organomegaly. MUSCULOSKELETAL: No joint swelling or deformity. EXTREMITIES: No cyanosis, clubbing, or pedal edema. NEUROLOGICAL: Gross neurological examination did not reveal any focal deficits. SKIN: Surgical incision bandage - Labs CBC & Chem 7: 03/23/23 03:27 03/23/23 03:27 Labs: Abnormal Lab Results - Last 24 Hours (Table) 03/22/23 03/22/23 03/23/23 Range/Units 16:42 19:12 03:27 WBC 11.12 H (4.50-10.00) X 10*3/uL RBC 3.07 L (4.40-5.60) X 10*6/uL Hgb 9.0 L (13.0-17.0) g/dL Hct 27.2 L (39.6-50.0) % Plt Count 105 L (140-440) X 10*3/uL BUN/Creatinine Ratio (12.00-20.00) Ratio POC Glucose (mg/dL) 185 H 169 H (70-110) mg/dL 03/23/23 Range/Units 03:27 WBC (4.50-10.00) X 10*3/uL RBC (4.40-5.60) X 10*6/uL Hgb (13.0-17.0) g/dL Hct (39.6-50.0) % Plt Count (140-440) X 10*3/uL BUN/Creatinine Ratio 26.44 H (12.00-20.00) Ratio POC Glucose (mg/dL) (70-110) mg/dL Assessment and Plan Assessment: Assessment and plan Status post lumbar spine surgery for neurogenic claudication and back pain POD 3 Diabetes mellitus type 2 Postoperative anemia Hypertension Hyperlipidemia Reactive leukocytosis * In regards to status post spine surgery, continue postoperative management per primary team. Continue with pain control, will need physical therapy evaluation * In regards to diabetes mellitus Accu-Cheks before meals at bedtime, continue patient on correctional insulin, continue metformin and glipizide monitor for hypoglycemia * In regards to hypertension continue lisinopril, hydrochlorothiazide continue with pain control * In regards to postoperative leukocytosis, likely reactive will continue to monitor * In regards to anemia continue to monitor H&H transfuse if hemoglobin less than 7 on hemodynamically unstable * Continue to monitor for resumption of bowel and bladder function * Will need to be discharged to rehab facility * Code status is full code
--- NOTE | 2023-03-23 13:07 | P.PN ---
Subjective Progress Note Date: 03/23/23 Principal diagnosis: S/P L3-S1 Decompression and Fusion Patient is seen at bedside this morning. He is postop day #3 from L3-S1 decompression and fusion. He has pain at the surgical site as expected but denies any new complaints. He denies numbness, tingling or calf pain. Review of systems is negative for fever, chills, chest pain, shortness of breath or other Objective - Vital Signs Vital signs: Vital Signs Temp 98.4 F 03/23/23 07:30 Pulse 87 03/23/23 07:30 Resp 19 03/23/23 07:30 BP 112/64 03/23/23 07:30 Pulse Ox 94 L 03/23/23 07:30 FiO2 Intake & Output 03/22/23 03/23/23 03/23/23 18:59 06:59 18:59 Output Total 200 Balance -200 Output: Urine 200 Other: # Voids 7 3 1 # Bowel Movements 1 - Exam Inspection reveals a benign surgical wound. There is no active bleeding or drainage. Neurovascular status is intact throughout the lower extremities with motor and sensation fully intact L2-S1. Calves are soft and nontender. 2+ dorsalis pedis pulse and less than 2 second cap refill is present. - Constitutional General appearance: Present: no acute distress - Labs CBC & Chem 7: 03/23/23 03:27 03/23/23 03:27 Labs: Abnormal Lab Results - Last 24 Hours (Table) 03/22/23 03/22/23 03/23/23 Range/Units 16:42 19:12 03:27 WBC 11.12 H (4.50-10.00) X 10*3/uL RBC 3.07 L (4.40-5.60) X 10*6/uL Hgb 9.0 L (13.0-17.0) g/dL Hct 27.2 L (39.6-50.0) % Plt Count 105 L (140-440) X 10*3/uL BUN/Creatinine Ratio (12.00-20.00) Ratio POC Glucose (mg/dL) 185 H 169 H (70-110) mg/dL 03/23/23 Range/Units 03:27 WBC (4.50-10.00) X 10*3/uL RBC (4.40-5.60) X 10*6/uL Hgb (13.0-17.0) g/dL Hct (39.6-50.0) % Plt Count (140-440) X 10*3/uL BUN/Creatinine Ratio 26.44 H (12.00-20.00) Ratio POC Glucose (mg/dL) (70-110) mg/dL Assessment and Plan Assessment: Postoperative day #1 Patient is seen and examined today at bedside. The patient has some pain around the surgical site as expected. Pain is being controlled with medication. He has been able to be mobile. He is tolerating his diet. He denies any nausea or vomiting. Physical Exam Afebrile with stable vital signs Abdomen is soft nontender. Chest has good excursion deep and space expiration The incision site is clean dry and intact. No erythema there is no purulence. Incision sites of his back are clear Extremities have not had neurologic change from prior to surgery. He has sustained dorsiflexion plantar flexion and EHL. He is able to lift his legs off the bed independently. Calves and thighs were soft nontender without evidence of DVT. Assessment/Plan Postoperative day #1 status post minimally invasive decompression fusion L2 through L3 4 L4 5 for his severe spinal stenosis with degenerative disc disease and lower extremity radiculopathy with weakness Patient is progressing somewhat slowly as expected from the surgery. But he continues to make progress. I do not think it would be safe for discharge straight home from the hospital and he is slated to go to group home post hospitalization We will continue to increase the patient's mobilization with therapy. We will continue pain control with oral or IV medications. We'll continue to follow patient closely. (1) Spinal stenosis Narrative/Plan: He will continue with routine postop orthopedic protocol including pain management, wound care, PT, DVT prophylaxis and medical management. Oral Pain meds adjusted today to try to achieve better pain control without IV pain meds. Expect that he will transfer to rehab facility in next 1-2 days. Current Visit: Yes Status: Acute Priority: Medium Code(s): M48.00 - SPINAL STENOSIS, SITE UNSPECIFIED SNOMED Code(s): 58636989 Plan: The patient is seen and examined at bedside. I agree of the dictation. He is making good progress though it is somewhat slow. This is quite expected for him given his age, medical status and the procedure. He is status post minimally invasive decompression and fusion at multiple levels of L2 3 L3 4 L4 5 for his severe spinal stenosis with lower extremity weakness. He is slated to go to extended care post hospitalization and I think that is appropriate. Hopefully he'll be able to be transferred either today or Saturday. Time with Patient: Less than 30
[2023-03-23 16:38] LABS: Glucose,Whole Blood 117 mg/dL (70-110)
[2023-03-23 20:33] LABS: Glucose,Whole Blood 146 mg/dL (70-110)
[2023-03-23] MEDS: ATORVASTATIN 20 MG TAB PO SCH (20:50)
[2023-03-24] MEDS: INSULIN ASPART (NovoLOG) 100 UNIT/ML VIAL SQ SCH ×4 (05:53→20:16)
[2023-03-24] MEDS: LACTATED RINGERS 1,000 ML IV SCH (05:53)
[2023-03-24 05:54] LABS: Glucose,Whole Blood 57 mg/dL (70-110)
[2023-03-24 06:10] LABS: Glucose,Whole Blood 58 mg/dL (70-110)
[2023-03-24 06:30] LABS: Glucose,Whole Blood 63 mg/dL (70-110)
[2023-03-24 06:48] LABS: Glucose,Whole Blood 74 mg/dL (70-110)
[2023-03-24 06:48] LABS: Glucose,Whole Blood 57 mg/dL (70-110)
[2023-03-24 07:09] LABS: Glucose,Whole Blood 66 mg/dL (70-110)
[2023-03-24] MEDS: glipiZIDE 10 MG TAB PO SCH ×2 (07:14→20:16)
[2023-03-24] MEDS: metFORMIN 500 MG TAB PO SCH ×2 (07:14→20:16)
[2023-03-24] MEDS: polyethylene glycoL 3350 17 GM POWD.PACK PO SCH (07:14)
[2023-03-24] MEDS: lisinopriL 20 MG TAB PO SCH (07:28)
[2023-03-24] MEDS: MAGNESIUM OXIDE 400 MG TAB PO SCH (07:28)
[2023-03-24] MEDS: PANTOPRAZOLE 40 MG TABLET PO SCH (07:28)
[2023-03-24] MEDS: ASPIRIN 81 MG PO SCH (07:28)
[2023-03-24] MEDS: THIAMINE 100 MG TAB PO SCH (07:28)
[2023-03-24] MEDS: METOPROLOL SUCCINATE (ER) 50 MG TAB.ER.24H PO SCH (07:29)
[2023-03-24] MEDS: CHOLECALCIFEROL 25 MCG (1000 IU) TABLET PO SCH (07:29)
[2023-03-24] MEDS: GABAPENTIN 300 MG CAP PO SCH ×2 (07:29→20:16)
[2023-03-24] MEDS: NITROFURANTOIN MONOHYD/M-CRYST 100 MG CAP PO SCH ×2 (07:29→20:26)
[2023-03-24] MEDS: TAMSULOSIN 0.4 MG CAP.ER.24H PO SCH (07:29)
[2023-03-24] MEDS: hydroCHLOROthiazide 25 MG TAB PO SCH (07:29)
[2023-03-24] MEDS: SERTRALINE 50 MG TAB PO SCH (07:30)
[2023-03-24] MEDS: POTASSIUM CHLORIDE ER 20 MEQ TAB.ER PO SCH (07:30)
[2023-03-24] MEDS: MULTIVITAMINS, THERA 1 EACH TAB PO SCH (07:30)
[2023-03-24 07:31] LABS: Glucose,Whole Blood 73 mg/dL (70-110)
[2023-03-24 08:16] LABS: Glucose,Whole Blood 79 mg/dL (70-110)
[2023-03-24 08:42] LABS: HCT 29.5 % (39.6-50.0); HGB 9.8 g/dL (13.0-17.0); MCH 29.5 pg (27.0-32.0); MCHC 33.2 g/dL (32.0-37.0); MCV 88.9 FL (80.0-97.0); Mean Platelet Volume 12.1 FL (9.5-12.2); NRBC Per 100 WBC 0 X 10*3/uL (0.00-0.01); Platelet Count 135 X 10*3/uL (140-440); RBC 3.32 X 10*6/uL (4.40-5.60); RDW 12.8 % (11.5-14.5); WBC 10.19 X 10*3/uL (4.50-10.00)
--- NOTE | 2023-03-24 10:12 | P.PN ---
Progress Note - Text Progress Note Date: 03/24/23 Postoperative day #4 Patient is seen and examined today at bedside. He is a bit more confused this morning but he is responsive and following commands. He did have his pain medication somewhat increased yesterday. The patient has some pain around the surgical site as expected, but he is rating it quite low and it seems to be improving. Pain is being controlled with medication. Physical Exam He is a little more confused today but he is able to wake up and follow commands. Afebrile with stable vital signs Abdomen is soft nontender. Chest has good excursion deep and space expiration The incision site is clean dry and intact. No erythema there is no purulence. His back incisions are clear without any erythema. Extremities have not had neurologic change from prior to surgery at his extremities. He is able to move his legs freely Calves and thighs were soft nontender without evidence of DVT. Assessment/Plan Postoperative day #4 status post decompression fusion L2 3 L3 4 L4 5 for severe spinal stenosis with lower shoulder radiculopathy and neurogenic claudication and some lower extremity weakness Patient is progressing a bit slowly from the surgery, which is not unexpected. He is a little more confused today and this may be due to his increase in pain medication but may also be due to overall sundowning in the hospital. We will see if he can skilled back some of the pain medications and still control his pain adequately.. We will continue to increase the patient's mobilization with therapy. Hopefully he'll still be okay for transfer to [facility] tomorrow We will continue pain control with oral or IV medications. We'll continue to follow patient closely.
[2023-03-24] MEDS ORDERED: HYDROcodone/APAP 5-325MG 1 EACH TAB PO PRN (10:15)
[2023-03-24 11:28] LABS: Glucose,Whole Blood 127 mg/dL (70-110)
[2023-03-24] MEDS: SODIUM CHLORIDE 0.9% 1,000 ML IV SCH ×2 (11:35→20:19)
--- NOTE | 2023-03-24 12:28 | P.PN ---
Subjective Progress Note Date: 03/24/23 * 72-year-old gentleman with past medical history significant for diabetes mellitus, hyperlipidemia, hypertension, degenerative disease of spine, chronic back pain, bladder outlet flow obstruction was admitted for an elective lumbar spine surgery * Patient is seen postoperative day one status poor laminectomy and decompression L3 to S1 and fusion * Postprocedure review of vital showed WBC of 13.5 hemoglobin of 12 platelet count of 142 * Serum chemistry sodium 140 potassium 3.7 carbon dioxide 24 BU and 18 creatinine 1.1 HbA1c 7.2 * During the encounter patient did complain of back discomfort * 03/22: Patient seen and evaluated bedside, patient is alert to person and situation. Lethargic however easily arousable. Vitals reviewed, continue on oxygen through nasal cannula encourage use of incentive spirometer back pain is better controlled blood work from this morning pending * 03/23: Patient seen and evaluated bedside, patient states abdominal distention has improved able to urinate as well. Vitals reviewed. Blood work reviewed WBC 11/hemoglobin 9 serum chemistry sodium 137 potassium 3.6 renal function within normal limits blood glucose low ranging 84/99, patient on glipizide, metformin, correctional insulin encouraged increase oral intake * 03/24: Patient seen and evaluated bedside, patient is oriented to person and situation however lethargic. Plan discussed with nursing staff will avoid narcotics will follow-up on basic metabolic panel and CBC. Continue to maintain delirium precautions. Patient was able to follow commands no focal deficit noted during my evaluation. Moving upper and lower extremities able to answer questions able to use incentive spirometer Objective - Vital Signs Vital signs: Vital Signs Temp 97.6 F 03/24/23 07:05 Pulse 79 03/24/23 07:05 Resp 19 03/24/23 07:05 BP 130/71 03/24/23 07:05 Pulse Ox 97 03/24/23 07:05 FiO2 Intake & Output 03/23/23 03/24/23 03/24/23 18:59 06:59 18:59 Output Total 2 Balance -2 Output: Stool 2 Other: Voiding Method Bedside Commode # Voids 5 # Bowel Movements 2 1 - Exam PHYSICAL EXAMINATION: GENERAL: The patient is alert and oriented x2 , lethargic however easily arousable, not in any acute distress. Well developed, well nourished. Nasal cannula in place HEENT: Pupils are round and equally reacting to light. EOMI. CARDIOVASCULAR: S1 and S2 present. No murmurs, rubs, or gallops. PULMONARY: Chest is clear to auscultation, no wheezing or crackles. ABDOMEN: Soft, nontender, nondistended, normoactive bowel sounds. No palpable organomegaly. MUSCULOSKELETAL: No joint swelling or deformity. EXTREMITIES: No cyanosis, clubbing, or pedal edema. NEUROLOGICAL: Gross neurological examination did not reveal any focal deficits. SKIN: Surgical incision bandage - Labs CBC & Chem 7: 03/24/23 04:45 03/23/23 03:27 Labs: Abnormal Lab Results - Last 24 Hours (Table) 03/23/23 03/23/23 03/24/23 Range/Units 16:37 20:31 04:45 WBC 10.19 H (4.50-10.00) X 10*3/uL RBC 3.32 L (4.40-5.60) X 10*6/uL Hgb 9.8 L (13.0-17.0) g/dL Hct 29.5 L (39.6-50.0) % Plt Count 135 L (140-440) X 10*3/uL POC Glucose (mg/dL) 117 H 146 H (70-110) mg/dL 03/24/23 03/24/23 03/24/23 Range/Units 05:52 06:09 06:28 WBC (4.50-10.00) X 10*3/uL RBC (4.40-5.60) X 10*6/uL Hgb (13.0-17.0) g/dL Hct (39.6-50.0) % Plt Count (140-440) X 10*3/uL POC Glucose (mg/dL) 57 L 58 L 63 L (70-110) mg/dL 03/24/23 03/24/23 03/24/23 Range/Units 06:44 07:08 11:27 WBC (4.50-10.00) X 10*3/uL RBC (4.40-5.60) X 10*6/uL Hgb (13.0-17.0) g/dL Hct (39.6-50.0) % Plt Count (140-440) X 10*3/uL POC Glucose (mg/dL) 57 L 66 L 127 H (70-110) mg/dL Assessment and Plan Assessment: Assessment and plan Status post lumbar spine surgery for neurogenic claudication and back pain POD 4 Acute delirium Diabetes mellitus type 2 Postoperative anemia Hypertension Hyperlipidemia Reactive leukocytosis * In regards to status post spine surgery, continue postoperative management per primary team. Continue with pain control, will need physical therapy evaluation * In regards to diabetes mellitus Accu-Cheks before meals at bedtime, continue patient on correctional insulin, continue metformin and glipizide monitor for hypoglycemia * In regards to hypertension continue lisinopril, hydrochlorothiazide continue with pain control caution with excessive use of narcotics/use Tylenol for pain control * In regards to postoperative leukocytosis, likely reactive will continue to monitor * In regards to anemia continue to monitor H&H transfuse if hemoglobin less than 7 on hemodynamically unstable * Continue to monitor for resumption of bowel and bladder function * Will need to be discharged to rehab facility * Code status is full code
[2023-03-24 16:21] LABS: Glucose,Whole Blood 188 mg/dL (70-110)
[2023-03-24 19:17] LABS: Glucose,Whole Blood 193 mg/dL (70-110)
[2023-03-24] MEDS: ATORVASTATIN 20 MG TAB PO SCH (20:19)
[2023-03-25 05:52] LABS: Glucose,Whole Blood 55 mg/dL (70-110)
[2023-03-25 06:02] LABS: Glucose,Whole Blood 66 mg/dL (70-110)
[2023-03-25] MEDS: INSULIN ASPART (NovoLOG) 100 UNIT/ML VIAL SQ SCH ×5 (06:06→21:15)
[2023-03-25] MEDS: LACTATED RINGERS 1,000 ML IV SCH (06:07)
[2023-03-25 06:16] LABS: Glucose,Whole Blood 82 mg/dL (70-110)
[2023-03-25] MEDS: glipiZIDE 10 MG TAB PO SCH ×2 (08:39→21:15)
[2023-03-25] MEDS: metFORMIN 500 MG TAB PO SCH ×2 (08:39→21:14)
[2023-03-25 08:43] LABS: HCT 28.9 % (39.6-50.0); HGB 9.3 g/dL (13.0-17.0); MCH 29.5 pg (27.0-32.0); MCHC 32.2 g/dL (32.0-37.0); MCV 91.7 FL (80.0-97.0); Mean Platelet Volume 11.9 FL (9.5-12.2); NRBC Per 100 WBC 0 X 10*3/uL (0.00-0.01); Platelet Count 155 X 10*3/uL (140-440); RBC 3.15 X 10*6/uL (4.40-5.60); RDW 12.9 % (11.5-14.5); WBC 7.68 X 10*3/uL (4.50-10.00)
[2023-03-25] MEDS: GABAPENTIN 300 MG CAP PO SCH ×2 (08:43→21:15)
[2023-03-25] MEDS: TAMSULOSIN 0.4 MG CAP.ER.24H PO SCH (08:43)
[2023-03-25] MEDS: lisinopriL 20 MG TAB PO SCH (08:43)
[2023-03-25] MEDS: SERTRALINE 50 MG TAB PO SCH (08:43)
[2023-03-25] MEDS: POTASSIUM CHLORIDE ER 20 MEQ TAB.ER PO SCH (08:43)
[2023-03-25] MEDS: MAGNESIUM OXIDE 400 MG TAB PO SCH (08:44)
[2023-03-25] MEDS: hydroCHLOROthiazide 25 MG TAB PO SCH (08:44)
[2023-03-25] MEDS: CHOLECALCIFEROL 25 MCG (1000 IU) TABLET PO SCH (08:44)
[2023-03-25] MEDS: THIAMINE 100 MG TAB PO SCH (08:44)
[2023-03-25] MEDS: PANTOPRAZOLE 40 MG TABLET PO SCH (08:44)
[2023-03-25] MEDS: MULTIVITAMINS, THERA 1 EACH TAB PO SCH (08:44)
[2023-03-25] MEDS: ASPIRIN 81 MG PO SCH (08:44)
[2023-03-25] MEDS: METOPROLOL SUCCINATE (ER) 50 MG TAB.ER.24H PO SCH (08:44)
[2023-03-25] MEDS: NITROFURANTOIN MONOHYD/M-CRYST 100 MG CAP PO SCH ×2 (08:44→21:58)
[2023-03-25] MEDS: polyethylene glycoL 3350 17 GM POWD.PACK PO SCH (08:44)
[2023-03-25 09:01] LABS: Blood Urea Nitrogen 19.6 mg/dL (9.0-27.0); Calcium 9.1 mg/dL (8.7-10.3); Carbon Dioxide 25.1 mmol/L (21.6-31.8); Chloride 106 mmol/L (96-109); Glucose 53 mg/dL (70-110); Potassium 4.1 mmol/L (3.5-5.5); Sodium 140 mmol/L (135-145)
--- NOTE | 2023-03-25 09:47 | P.DS ---
Providers Date of admission: 03/23/23 01:37 Expected date of discharge: 03/25/23 Attending physician: Marcelo Majano Consults: 03/20/23 13:29 Consult Physician Routine Consulting Provider: Dawn Dacosta Consult Reason/Comments: Medical management Do you want consulting provider notified?: Yes Primary care physician: [facility] - Discharge Diagnosis(es) (1) Spinal stenosis, lumbar region with neurogenic claudication Current Visit: Yes Status: Acute (2) Lumbar degenerative disc disease Current Visit: Yes Status: Acute (3) Lumbar facet arthropathy Current Visit: Yes Status: Acute (4) Low back pain Current Visit: Yes Status: Acute (5) Hyperlipidemia Current Visit: Yes Status: Acute (6) Hypertension Current Visit: Yes Status: Acute (7) Diabetes mellitus Current Visit: Yes Status: Acute (8) Lumbar disc herniation Current Visit: Yes Status: Acute (9) Status post lumbar spinal fusion Current Visit: Yes Status: Acute (10) Lower extremity weakness Current Visit: Yes Status: Acute Hospital Course: This is a pleasant 72-year-old male who presented with low back pain, neurogenic claudication, lower extremity weakness, degenerative disc disease, lumbar facet arthrosis, lumbar disc protrusion, and L3-4, L4-5, and L5-S1 lumbar spinal stenosis who failed outpatient conservative therapy. He was admitted for L3-4, L4-5, and L5-S1 minimally invasive posterior lateral decompression and fusion with transforaminal lumbar interbody fusion. The patient tolerated the procedure well and did well postoperatively. His pain has been adequately controlled in regards to his lumbar spine and lower extremities. He does continue to ambulate and change positions slowly and needs assistance. He has been working with physical therapy. He does feel he has made some progress. Patient does feel he is ready for discharge today. Patient has been approved for discharge to the rehabilitation facility. Condition on day of discharge stable. [facility] Patient was cleared preoperatively for surgery through the [facility]. Patient currently denies any nausea, vomiting, fever, or chills. Patient is eating and voiding freely without difficulty. Patient may shower without a Optifoam dressing intact. Patient should refrain from driving until at least after their first follow-up appointment in the office. Patient should avoid excessive bending, lifting, and twisting; no lifting greater than 10 pounds. MAPS has been reviewed. An "Opiod Start Talking" Form has been signed and placed in the patient's chart. A prescription has been written for hydrocodone 5 mg/325 mg, 1 tab, every 4 hours as needed for acute pain, dispense #42. He is also given prescription for baclofen 10 mg, 1 tab, 3 times a day, as needed for muscle spasm, dispensed #60, Senokot-S1 tab twice a day as needed for constipation, and gabapentin, 300 mg, twice a day, dispensed #6. These prescriptions are printed, signed, and placed in the patient's chart in anticipation for discharge to a rehabilitation facility. Patient will need clearance by medicine prior to discharge today. Medicine to complete his med rec prior to discharge. Patient's other medical diagnoses include diabetes mellitus, hypertension, and hyperlipidemia. Physical Exam on day of discharge: Status post surgical day number 5 Patient is awake, alert, and oriented 3 Vital signs stable; patient sitting in a bedside chair Good chest excursion with deep inspiration and expiration Abdomen soft nontender Dorsiflexion, plantarflexion, and extensor hallucis longus positive sustained bilaterally Patient is able to perform knee extension bilaterally independently without difficulty No signs or symptoms of DVT; no calf pain; pneumatic cuffs not currently intact bilateral lower extremities Optifoam dressings are removed over the lumbar spine and right iliac crest; no erythema, purulence, or signs of infection No drainage from the surgical sites Mild bruising around the surgical sites of the lumbar spine No significant pain with palpation over the surgical sites of the lumbar spine Neurovascularly intact bilaterally lower extremities Procedures: L3-4, L4-5, and L5-S1 minimally invasive posterior lateral decompression and fusion with transforaminal lumbar interbody fusion Patient Condition at Discharge: Stable Plan - Discharge Summary Discharge Rx Participant: Yes New Discharge Prescriptions: New Sennosides-Docusate Sodium [Senokot-S] 1 tab PO BID PRN #60 tablet PRN Reason: Constipation Baclofen 10 mg PO TID PRN #60 tab PRN Reason: Spasms Gabapentin 300 mg PO BID 3 Days #6 cap HYDROcodone/APAP 5-325MG [Niland 5] 1 each PO Q4HR PRN #42 tab PRN Reason: Pain No Action Sertraline [Zoloft] 50 mg PO QAM Gabapentin 300 mg PO BID nitrofurantoin macrocrystaL [Nitrofurantoin] 100 mg PO BID Simvastatin 40 mg PO HS Potassium Chloride [K-Tab ER] 20 meq PO DAILY Omeprazole 20 mg PO QAM Magnesium (Unknown Dose) 1 dose PO DAILY Cholecalciferol [Vitamin D3 (25 Mcg = 1000 Iu)] 50 mcg PO DAILY Metoprolol Succinate [Toprol XL] 50 mg PO QAM Tamsulosin [Flomax] 0.8 mg PO DAILY Multivitamins, Thera [Multivitamin (formulary)] 1 tab PO DAILY metFORMIN HCL 1,000 mg PO BID lisinopriL [Prinivil] 20 mg PO QAM hydroCHLOROthiazide 25 mg PO QAM glipiZIDE 20 mg PO BID Thiamine [Vitamin B-1] 50 mg PO DAILY Aspirin [Adult Low Dose Aspirin EC] 81 mg PO DAILY Discharge Medication List Aspirin [Adult Low Dose Aspirin EC] 81 mg PO DAILY 03/14/23 [History] Cholecalciferol [Vitamin D3 (25 Mcg = 1000 Iu)] 50 mcg PO DAILY 03/14/23 [History] Gabapentin 300 mg PO BID 03/14/23 [History] Magnesium (Unknown Dose) 1 dose PO DAILY 03/14/23 [History] Metoprolol Succinate [Toprol XL] 50 mg PO QAM 03/14/23 [History] Multivitamins, Thera [Multivitamin (formulary)] 1 tab PO DAILY 03/14/23 [History] Omeprazole 20 mg PO QAM 03/14/23 [History] Potassium Chloride [K-Tab ER] 20 meq PO DAILY 03/14/23 [History] Sertraline [Zoloft] 50 mg PO QAM 03/14/23 [History] Simvastatin 40 mg PO HS 03/14/23 [History] Tamsulosin [Flomax] 0.8 mg PO DAILY 03/14/23 [History] Thiamine [Vitamin B-1] 50 mg PO DAILY 03/14/23 [History] glipiZIDE 20 mg PO BID 03/14/23 [History] hydroCHLOROthiazide 25 mg PO QAM 03/14/23 [History] lisinopriL [Prinivil] 20 mg PO QAM 03/14/23 [History] metFORMIN HCL 1,000 mg PO BID 03/14/23 [History] nitrofurantoin macrocrystaL [Nitrofurantoin] 100 mg PO BID 03/14/23 [History] Baclofen 10 mg PO TID PRN #60 tab 03/22/23 [Rx] Gabapentin 300 mg PO BID 3 Days #6 cap 03/22/23 [Rx] HYDROcodone/APAP 5-325MG [Niland 5] 1 each PO Q4HR PRN #42 tab 03/22/23 [Rx] Sennosides-Docusate Sodium [Senokot-S] 1 tab PO BID PRN #60 tablet 03/22/23 [Rx] Follow up Appointment(s)/Referral(s): Vitor De Jesus, [place] [PHYSICIAN FACTORY MACHINE COMPUTER OPERATOR] - 04/01/23 10:15 am (Patient may follow-up with Vitor De Jesus PA-C or Dr. Shan Majano at [facility] in 2-3 weeks following discharge. ) Activity/Diet/Wound Care/Special Instructions: 1. Patient may shower without a Optifoam dressing intact. 2. Patient should refrain from driving until at least after their first follow- up appointment in the office. 3. Patient should avoid excessive bending, twisting, lifting; avoid overhead lifting; no lifting greater than 10 pounds 4. Patient is encouraged to utilize a walker or other aid to aid in ambulation as needed 5. Take medications as prescribed 6. Patient should avoid anti-inflammatory medications over the next 6 weeks postoperatively 7. Do not soak in tub Discharge Disposition: TRANSFER TO SNF/ECF
[2023-03-25 11:38] LABS: Glucose,Whole Blood 136 mg/dL (70-110)
[2023-03-25] MEDS: SODIUM CHLORIDE 0.9% 1,000 ML IV SCH (12:21)
--- NOTE | 2023-03-25 12:23 | P.PN ---
Subjective Progress Note Date: 03/25/23 * 72-year-old gentleman with past medical history significant for diabetes mellitus, hyperlipidemia, hypertension, degenerative disease of spine, chronic back pain, bladder outlet flow obstruction was admitted for an elective lumbar spine surgery * Patient is seen postoperative day one status poor laminectomy and decompression L3 to S1 and fusion * Postprocedure review of vital showed WBC of 13.5 hemoglobin of 12 platelet count of 142 * Serum chemistry sodium 140 potassium 3.7 carbon dioxide 24 BU and 18 creatinine 1.1 HbA1c 7.2 * During the encounter patient did complain of back discomfort * 03/22: Patient seen and evaluated bedside, patient is alert to person and situation. Lethargic however easily arousable. Vitals reviewed, continue on oxygen through nasal cannula encourage use of incentive spirometer back pain is better controlled blood work from this morning pending * 03/23: Patient seen and evaluated bedside, patient states abdominal distention has improved able to urinate as well. Vitals reviewed. Blood work reviewed WBC 11/hemoglobin 9 serum chemistry sodium 137 potassium 3.6 renal function within normal limits blood glucose low ranging 84/99, patient on glipizide, metformin, correctional insulin encouraged increase oral intake * 03/24: Patient seen and evaluated bedside, patient is oriented to person and situation however lethargic. Plan discussed with nursing staff will avoid narcotics will follow-up on basic metabolic panel and CBC. Continue to maintain delirium precautions. Patient was able to follow commands no focal deficit noted during my evaluation. Moving upper and lower extremities able to answer questions able to use incentive spirometer * 03/25: Patient seen and evaluated bedside, mentation has improved, patient alert and oriented 3, patient noted to be on room air, seen by speech therapy and they recommended videofluoroscopic study due to concern for aspiration. At this time discharge will be held until videofluoroscopic study done patient might need to dysphagia diet upon discharge Objective - Vital Signs Vital signs: Vital Signs Temp 97.9 F 03/25/23 06:46 Pulse 90 03/25/23 06:46 Resp 22 03/25/23 06:46 BP 148/74 03/25/23 06:46 Pulse Ox 94 L 03/25/23 06:46 FiO2 Intake & Output 03/24/23 03/25/23 03/25/23 18:59 06:59 18:59 Other: Voiding Method Bedside Commode Bedside Commode Urinal # Voids 4 2 # Bowel Movements 1 - Exam PHYSICAL EXAMINATION: GENERAL: The patient is alert and oriented x2 , lethargic however easily arousable, not in any acute distress. Well developed, well nourished. Nasal cannula in place HEENT: Pupils are round and equally reacting to light. EOMI. CARDIOVASCULAR: S1 and S2 present. No murmurs, rubs, or gallops. PULMONARY: Chest is clear to auscultation, no wheezing or crackles. ABDOMEN: Soft, nontender, nondistended, normoactive bowel sounds. No palpable organomegaly. MUSCULOSKELETAL: No joint swelling or deformity. EXTREMITIES: No cyanosis, clubbing, or pedal edema. NEUROLOGICAL: Gross neurological examination did not reveal any focal deficits. SKIN: Surgical incision bandage - Labs CBC & Chem 7: 03/25/23 04:43 03/25/23 04:43 Labs: Abnormal Lab Results - Last 24 Hours (Table) 03/24/23 03/24/23 03/25/23 Range/Units 16:19 19:16 04:43 RBC 3.15 L (4.40-5.60) X 10*6/uL Hgb 9.3 L (13.0-17.0) g/dL Hct 28.9 L (39.6-50.0) % BUN/Creatinine Ratio (12.00-20.00) Ratio Glucose (70-110) mg/dL POC Glucose (mg/dL) 188 H 193 H (70-110) mg/dL C-Reactive Protein (0.00-0.80) mg/dL 03/25/23 03/25/23 03/25/23 Range/Units 04:43 05:50 06:01 RBC (4.40-5.60) X 10*6/uL Hgb (13.0-17.0) g/dL Hct (39.6-50.0) % BUN/Creatinine Ratio 24.50 H (12.00-20.00) Ratio Glucose 53 L (70-110) mg/dL POC Glucose (mg/dL) 55 L 66 L (70-110) mg/dL C-Reactive Protein 10.50 H (0.00-0.80) mg/dL 03/25/23 Range/Units 11:36 RBC (4.40-5.60) X 10*6/uL Hgb (13.0-17.0) g/dL Hct (39.6-50.0) % BUN/Creatinine Ratio (12.00-20.00) Ratio Glucose (70-110) mg/dL POC Glucose (mg/dL) 136 H (70-110) mg/dL C-Reactive Protein (0.00-0.80) mg/dL Assessment and Plan Assessment: Assessment and plan Status post lumbar spine surgery for neurogenic claudication and back pain POD Acute delirium resolved Dysphagia Diabetes mellitus type 2 Postoperative anemia Hypertension Hyperlipidemia Reactive leukocytosis * In regards to status post spine surgery, continue postoperative management per primary team. Continue with pain control, will need physical therapy evaluation * In regards to diabetes mellitus Accu-Cheks before meals at bedtime, continue patient on correctional insulin, continue metformin and glipizide monitor for hypoglycemia * In regards to hypertension continue lisinopril, hydrochlorothiazide continue with pain control caution with excessive use of narcotics/use Tylenol for pain control * In regards to postoperative leukocytosis, likely reactive will continue to monitor * In regards to dysphagia, speech therapy consulted, videofluoroscopic study ordered * In regards to anemia continue to monitor H&H transfuse if hemoglobin less than 7 on hemodynamically unstable * Continue to monitor for resumption of bowel and bladder function * Will need to be discharged to rehab facility * Code status is full code Time with Patient: Greater than 30
[2023-03-25 16:39] LABS: Glucose,Whole Blood 176 mg/dL (70-110)
[2023-03-25 19:03] LABS: Glucose,Whole Blood 259 mg/dL (70-110)
[2023-03-25] MEDS: ATORVASTATIN 20 MG TAB PO SCH (21:14)
[2023-03-26] MEDS: SODIUM CHLORIDE 0.9% 1,000 ML IV SCH (03:39)
[2023-03-26] MEDS: LACTATED RINGERS 1,000 ML IV SCH (03:39)
[2023-03-26 04:08] LABS: Glucose,Whole Blood 91 mg/dL (70-110)
[2023-03-26 05:27] LABS: Glucose,Whole Blood 128 mg/dL (70-110)
[2023-03-26] MEDS: INSULIN ASPART (NovoLOG) 100 UNIT/ML VIAL SQ SCH (07:26)
[2023-03-26 07:57] VITALS: BP 137/65; PULSE 92; RESP 17; TEMP 98.1
[2023-03-26] MEDS: polyethylene glycoL 3350 17 GM POWD.PACK PO SCH (10:51)
[2023-03-26] MEDS: MULTIVITAMINS, THERA 1 EACH TAB PO SCH (10:51)
[2023-03-26] MEDS: ASPIRIN 81 MG PO SCH (10:51)
[2023-03-26] MEDS: lisinopriL 20 MG TAB PO SCH (10:51)
[2023-03-26] MEDS: SERTRALINE 50 MG TAB PO SCH (10:51)
[2023-03-26] MEDS: glipiZIDE 10 MG TAB PO SCH (10:51)
[2023-03-26] MEDS: TAMSULOSIN 0.4 MG CAP.ER.24H PO SCH (10:51)
[2023-03-26] MEDS: CHOLECALCIFEROL 25 MCG (1000 IU) TABLET PO SCH (10:52)
[2023-03-26] MEDS: PANTOPRAZOLE 40 MG TABLET PO SCH (10:52)
[2023-03-26] MEDS: MAGNESIUM OXIDE 400 MG TAB PO SCH (10:52)
[2023-03-26] MEDS: THIAMINE 100 MG TAB PO SCH (10:52)
[2023-03-26] MEDS: metFORMIN 500 MG TAB PO SCH (10:52)
[2023-03-26] MEDS: hydroCHLOROthiazide 25 MG TAB PO SCH (10:52)
[2023-03-26] MEDS: METOPROLOL SUCCINATE (ER) 50 MG TAB.ER.24H PO SCH (10:52)
[2023-03-26] MEDS: POTASSIUM CHLORIDE ER 20 MEQ TAB.ER PO SCH (10:52)
[2023-03-26] MEDS: GABAPENTIN 300 MG CAP PO SCH (10:53)
[2023-03-26] MEDS: NITROFURANTOIN MONOHYD/M-CRYST 100 MG CAP PO SCH (10:54)
--- NOTE | 2023-03-26 11:27 | P.PN ---
Subjective Progress Note Date: 03/26/23 * 72-year-old gentleman with past medical history significant for diabetes mellitus, hyperlipidemia, hypertension, degenerative disease of spine, chronic back pain, bladder outlet flow obstruction was admitted for an elective lumbar spine surgery * Patient is seen postoperative day one status poor laminectomy and decompression L3 to S1 and fusion * Postprocedure review of vital showed WBC of 13.5 hemoglobin of 12 platelet count of 142 * Serum chemistry sodium 140 potassium 3.7 carbon dioxide 24 BU and 18 creatinine 1.1 HbA1c 7.2 * During the encounter patient did complain of back discomfort * 03/22: Patient seen and evaluated bedside, patient is alert to person and situation. Lethargic however easily arousable. Vitals reviewed, continue on oxygen through nasal cannula encourage use of incentive spirometer back pain is better controlled blood work from this morning pending * 03/23: Patient seen and evaluated bedside, patient states abdominal distention has improved able to urinate as well. Vitals reviewed. Blood work reviewed WBC 11/hemoglobin 9 serum chemistry sodium 137 potassium 3.6 renal function within normal limits blood glucose low ranging 84/99, patient on glipizide, metformin, correctional insulin encouraged increase oral intake * 03/24: Patient seen and evaluated bedside, patient is oriented to person and situation however lethargic. Plan discussed with nursing staff will avoid narcotics will follow-up on basic metabolic panel and CBC. Continue to maintain delirium precautions. Patient was able to follow commands no focal deficit noted during my evaluation. Moving upper and lower extremities able to answer questions able to use incentive spirometer * 03/25: Patient seen and evaluated bedside, mentation has improved, patient alert and oriented 3, patient noted to be on room air, seen by speech therapy and they recommended videofluoroscopic study due to concern for aspiration. At this time discharge will be held until videofluoroscopic study done patient might need to dysphagia diet upon discharge * 03/26/23: Patient seen and evaluated bedside, care plan discussed with significant other bedside as well. Patient is alert and oriented 3. Patient was on Macrobid for urinary tract infection to complete 3 more dose this was started prior to this hospitalization. Patient seen by speech therapy and placed on dysphagia diet. Outpatient follow-up with neurology recommended patient to follow-up with [place] primary care physician who can put a referral Objective - Vital Signs Vital signs: Vital Signs Temp 98.1 F 03/26/23 07:03 Pulse 92 03/26/23 07:03 Resp 17 03/26/23 07:03 BP 137/65 03/26/23 07:03 Pulse Ox 90 L 03/26/23 08:24 FiO2 Intake & Output 03/25/23 03/26/23 03/26/23 18:59 06:59 18:59 Other: Voiding Method Bedside Commode Incontinent Bedside Commode Urinal # Voids 2 2 # Bowel Movements 1 - Exam PHYSICAL EXAMINATION: GENERAL: The patient is alert and oriented x2, awake and alert, answering questions Well developed, well nourished HEENT: Pupils are round and equally reacting to light. EOMI. CARDIOVASCULAR: S1 and S2 present. No murmurs, rubs, or gallops. PULMONARY: Chest is clear to auscultation, no wheezing or crackles. ABDOMEN: Soft, nontender, nondistended, normoactive bowel sounds. No palpable organomegaly. MUSCULOSKELETAL: No joint swelling or deformity. EXTREMITIES: No cyanosis, clubbing, or pedal edema. NEUROLOGICAL: Gross neurological examination did not reveal any focal deficits. SKIN: Surgical incision bandage - Labs CBC & Chem 7: 03/25/23 04:43 03/25/23 04:43 Labs: Abnormal Lab Results - Last 24 Hours (Table) 03/25/23 03/25/23 03/25/23 Range/Units 11:36 16:37 19:03 POC Glucose (mg/dL) 136 H 176 H 259 H (70-110) mg/dL 03/26/23 Range/Units 05:26 POC Glucose (mg/dL) 128 H (70-110) mg/dL Assessment and Plan Assessment: Assessment and plan Status post lumbar spine surgery for neurogenic claudication and back pain POD 5 Acute delirium resolved Dysphagia Diabetes mellitus type 2 Postoperative anemia Hypertension Hyperlipidemia Reactive leukocytosis * In regards to status post spine surgery, continue postoperative management per primary team. Continue with pain control, charts to rehab * In regards to diabetes mellitus Accu-Cheks before meals at bedtime continue metformin and glipizide monitor for hypoglycemia * In regards to hypertension continue lisinopril, hydrochlorothiazide continue with pain control caution with excessive use of narcotics/use Tylenol for pain control * In regards to postoperative leukocytosis, likely reactive will continue to monitor * In regards to dysphagia, speech therapy consulted, videofluoroscopic study completed placed on dysphagia diet * In regards to anemia continue to monitor H&H transfuse if hemoglobin less than 7 on hemodynamically unstable * Continue to monitor for resumption of bowel and bladder function * Will need to be discharged to rehab facility * Code status is full code
--- NOTE | 2023-03-26 17:17 | FL ---
Exam Date: 03/25/2023 2:29 PM. Modified barium swallow for dysphagia. Consistencies administered: Various consistency of barium. Fluoro time: 1 minute 2 seconds No images were sent to PACS. Please see speech pathology report. DAP: 184.04 Gycm2
== END 2023-03-26 11:33 ==
LOC: OR 06:47 → 4SSUR 13:22 → OR 03-22 08:43 → 4SSUR 03-23 01:37
PROVIDERS: ADMIT Orthopaedic Surgery Orthopaedic Surgery of the Spine; ATTEND Orthopaedic Surgery Orthopaedic Surgery of the Spine
DX: M51.16 Intervertebral disc disorders with radiculopathy, lumbar region (principal); M47.26 Other spondylosis with radiculopathy, lumbar region; M48.062 Spinal stenosis, lumbar region with neurogenic claudication; M47.27 Other spondylosis with radiculopathy, lumbosacral region; M48.07 Spinal stenosis, lumbosacral region; R41.0 Disorientation, unspecified; D64.9 Anemia, unspecified; E11.9 Type 2 diabetes mellitus without complications; E78.5 Hyperlipidemia, unspecified; I10 Essential (primary) hypertension; D72.829 Elevated white blood cell count, unspecified; R13.10 Dysphagia, unspecified; N13.9 Obstructive and reflux uropathy, unspecified; F32.A Depression, unspecified; K21.9 Gastro-esophageal reflux disease without esophagitis; G47.30 Sleep apnea, unspecified; Z85.46 Personal history of malignant neoplasm of prostate; Z20.822 Contact with and (suspected) exposure to COVID-19; Z87.891 Personal history of nicotine dependence; Z79.82 Long term (current) use of aspirin; Z79.899 Other long term (current) drug therapy; Z79.84 Long term (current) use of oral hypoglycemic drugs
CPT/HCPCS: 96361 ×6; 96365; 96366; 96372 ×4; 96375; 94760 ×4; 97116; 97162; 97530; 97166; 92610; 92526; 92611; 86891; 80048 ×3; 84132; 85025; 85027 ×3; 86140; 83036; 87635; 74230; 72100; 22633; 22634 ×2; 22614 ×3; 20930; 20936; G0378 ×5; P9022; C1713 ×2; C1762; J0690 ×2; J2405 ×2; J1170